=== PATIENT | male | born 1935 | race Caucasian/White ===

== ENCOUNTER 2016-12-12 11:14 | Inpatient (IN) | payer MEDICARE, OTHER ==
[~2016-12-12] VITALS: Ht 198.1 cm; Wt 149.6 kg
[~2016-12-12 11:14] MED LIST: GLUCOTROL XL5 MG PO; LOVASTATIN40 MG PO; LUTEIN20 M1 PO; METFORMIN500 MG PO; ST. JOSEPH81 M2 PO
[2016-12-13] MEDS ORDERED: SERTRALINE HYD100 MG PO (13:22)
[2016-12-13] MEDS ORDERED: LOZOL 2.5M2.5 MG/TAB PO (13:22)
[2016-12-13] MEDS ORDERED: LISINOPRIL20 MG PO (13:22)
[2016-12-13] MEDS ORDERED: GLUCOTROL10 M2 PO (13:23)
[2016-12-13] MEDS ORDERED: ARICEPT10 M1 PO (13:24)
[2016-12-13] MEDS ORDERED: LASIX20 M1 PO (13:24)
[2016-12-13] MEDS ORDERED: CARBIDOPA AND L1 OD1 PO (13:24)
[2016-12-13] MEDS ORDERED: LEADER MELATONIN5 MG PO (13:25)
[2016-12-13] MEDS ORDERED: MIRAPEX 1MG PO (13:26)
[2016-12-13] MEDS ORDERED: WELLBUTRIN 75MG75 MG PO (13:27)
[2016-12-13] MEDS ORDERED: DESYREL 50MG50 MG PO (13:28)
[2016-12-13] MEDS ORDERED: REQUIP2 M1 PO (13:28)
[2016-12-13 15:07] VITALS: BP 128/78
[2016-12-13 18:43] VITALS: BP 138/73
[2016-12-14 06:47] VITALS: BP 132/92
[2016-12-14 18:24] VITALS: BP 127/66
[2016-12-15 06:13] VITALS: BP 138/79
[2016-12-15 18:23] VITALS: BP 143/73
[2016-12-16 06:24] VITALS: BP 163/85
[2016-12-16] MEDS ORDERED: CARBIDOPA/LEVODOPA PO (14:01)
[2016-12-16 18:34] VITALS: BP 140/73
[2016-12-17 06:34] VITALS: BP 137/59
[2016-12-17 18:16] VITALS: BP 91/50
[2016-12-18 06:24] VITALS: BP 137/67
[2016-12-18 18:15] VITALS: BP 98/48
[2016-12-19 06:21] VITALS: BP 114/70
[2016-12-19 18:06] VITALS: BP 114/60
[2016-12-20 06:27] VITALS: BP 123/70
[2016-12-20 18:16] VITALS: BP 115/64
[2016-12-21 06:23] VITALS: BP 105/51
[2016-12-21 18:19] VITALS: BP 121/54
[2016-12-22 06:23] VITALS: BP 129/66
[2016-12-22 18:28] VITALS: BP 103/48
[2016-12-23 06:06] VITALS: BP 132/70
[2016-12-23 18:14] VITALS: BP 103/54
[2016-12-24 06:27] VITALS: BP 124/58
[2016-12-24] MEDS ORDERED: GLUCOPHAGE PO (14:51)
[2016-12-24 18:01] VITALS: BP 124/70
[2016-12-25 06:25] VITALS: BP 129/70
[2016-12-25 18:03] VITALS: BP 103/57
[2016-12-26 06:25] VITALS: BP 127/61
[2016-12-26 18:34] VITALS: BP 153/58
[2016-12-27 06:21] VITALS: BP 122/64
[2016-12-27 18:19] VITALS: BP 119/41
[2016-12-28 06:23] VITALS: BP 137/70
[2016-12-28 18:16] VITALS: BP 125/61
[2016-12-29 06:22] VITALS: BP 141/65
[2016-12-29 18:16] VITALS: BP 111/49
[2016-12-30 06:27] VITALS: BP 137/71
[2016-12-30 18:12] VITALS: BP 126/69
[2016-12-31 06:22] VITALS: BP 129/78
[2016-12-31 18:39] VITALS: BP 125/56
[2017-01-01 06:25] VITALS: BP 123/69
[2017-01-01 18:10] VITALS: BP 113/62
[2017-01-02 06:24] VITALS: BP 125/69
[2017-01-02 18:08] VITALS: BP 98/55
[2017-01-03 06:20] VITALS: BP 121/77
[2017-01-03 18:00] VITALS: BP 106/58
[2017-01-04 05:17] VITALS: BP 133/64
[2017-01-04 18:45] VITALS: BP 103/53
[2017-01-05 06:31] VITALS: BP 119/66
[2017-01-05 18:22] VITALS: BP 107/54
[2017-01-06 06:24] VITALS: BP 109/68
[2017-01-06 18:03] VITALS: BP 136/68
[2017-01-07 06:27] VITALS: BP 128/77
[2017-01-07 18:20] VITALS: BP 128/69
[2017-01-08 06:36] VITALS: BP 126/71
[2017-01-08 18:25] VITALS: BP 120/62
[2017-01-09 06:26] VITALS: BP 99/56
[2017-01-09 18:18] VITALS: BP 96/54
[2017-01-10 06:23] VITALS: BP 129/68
[2017-01-10 18:59] VITALS: BP 173/90
[2017-01-11 06:18] VITALS: BP 134/74
[2017-01-11 18:37] VITALS: BP 122/70
[2017-01-12 06:40] VITALS: BP 136/74
[2017-01-12 18:11] VITALS: BP 124/59
[2017-01-13 06:20] VITALS: BP 128/67
[2017-01-13 18:19] VITALS: BP 110/62
[2017-01-14 06:25] VITALS: BP 143/68
[2017-01-14 18:40] VITALS: BP 109/54
[2017-01-15 06:25] VITALS: BP 118/63
[2017-01-15 18:28] VITALS: BP 113/60
[2017-01-16 06:25] VITALS: BP 126/79
[2017-01-16 17:58] VITALS: BP 112/64
[2017-01-17 06:15] VITALS: BP 107/61
[2017-01-17 18:11] VITALS: BP 127/66
[2017-01-18 06:18] VITALS: BP 130/77
[2017-01-18 18:41] VITALS: BP 126/68
[2017-01-19 06:58] VITALS: BP 116/55
[2017-01-19 18:30] VITALS: BP 132/76
[2017-01-20 06:19] VITALS: BP 107/69
[2017-01-20 18:15] VITALS: BP 117/58
[2017-01-21 06:19] VITALS: BP 126/68
[2017-01-21 18:16] VITALS: BP 138/65
[2017-01-22 06:18] VITALS: BP 119/73
[2017-01-22 18:07] VITALS: BP 120/65
[2017-01-23 06:03] VITALS: BP 126/69
[2017-01-23] MEDS ORDERED: ASPIRIN 32325 MG/TAB PO (07:37)
[2017-01-23] MEDS ORDERED: LEVEMIR100 U/M1 SQ ×2 (08:03)
[2017-01-23] MEDS ORDERED: NYSTATIN60 GM TP (08:04)
[2017-01-23] MEDS ORDERED: HYDROCHLOROTH12.5 M1 PO (08:05)
== END 2017-01-23 14:04 | disposition home health service (06) | DRG 948 ==
LOC: MED/SURG 11:14
PROVIDERS: ADMIT Physician Assistant
DX: R53.81 Other malaise (principal); Z89.421 Acquired absence of other right toe(s); E11.9 Type 2 diabetes mellitus without complications; I10 Essential (primary) hypertension; G31.83 Neurocognitive disorder with Lewy bodies; F02.80 Dementia in other diseases classified elsewhere, unspecified severity, without behavioral disturbance, psychotic disturbance, mood disturbance, and anxiety; I73.9 Peripheral vascular disease, unspecified; Z88.0 Allergy status to penicillin; R26.9 Unspecified abnormalities of gait and mobility
CPT/HCPCS: A6402; A9270-GY; J1815; J3370; J7050

== ENCOUNTER 2018-11-03 12:31 | Inpatient (IN) | payer MEDICARE ==
[~2018-11-03] VITALS: Ht 198.1 cm; Wt 155.9 kg
[~2018-11-03 12:31] MED LIST changes: +ARICEPT10 M1 PO; +ASPIRIN 32325 MG/TAB PO; +CARBIDOPA AND L1 OD1 PO; +CARBIDOPA/LEVODOPA PO; +DESYREL 50MG50 MG PO; +GLUCOPHAGE PO; +GLUCOTROL10 M2 PO; +HYDROCHLOROTH12.5 M1 PO; +LASIX20 M1 PO; +LEADER MELATONIN5 MG PO; +LEVEMIR100 U/M1 SQ; +LISINOPRIL20 MG PO; +LOZOL 2.5M2.5 MG/TAB PO; +MIRAPEX 1MG PO; +NYSTATIN60 GM TP; +REQUIP2 M1 PO; +SERTRALINE HYD100 MG PO; +WELLBUTRIN 75MG75 MG PO
[2018-11-03 14:49] VITALS: BP 143/89
[2018-11-03 15:54] LABS: URINE APPEARANCE CLEAR; URINE BILIRUBIN NEGATIVE (NEGATIVE); URINE BLOOD TRACE (NEGATIVE); URINE COLOR YELLOW; URINE GLUCOSE NEGATIVE (NEGATIVE); URINE KETONE NEGATIVE (NEGATIVE); URINE LEUKOCYTE ESTERASE NEGATIVE (NEGATIVE); URINE NITRATE NEGATIVE (NEGATIVE); URINE PROTEIN(semi-quant) TRACE mg/dL (NEGATIVE); URINE UROBILINOGEN NORMAL (NORMAL)
[2018-11-03] MEDS ORDERED: IPRATROPIUM BROM3 M1 IH (16:03)
[2018-11-03] MEDS ORDERED: LOPRESSOR 225 MG/TAB PO (16:05)
[2018-11-03] MEDS ORDERED: COUMADIN 5MG5 MG/TAB PO (16:05)
[2018-11-03] MEDS ORDERED: LISINOPRIL10 MG PO (16:06)
[2018-11-03] MEDS ORDERED: ADULT LOW DOSE81 MG PO (16:07)
[2018-11-03] MEDS ORDERED: WELLBUTRIN 75MG75 MG PO (16:09)
[2018-11-03] MEDS ORDERED: TYLENOL325 M1 PO (16:09)
[2018-11-03] MEDS ORDERED: LEVEMIR FLEX100 U/ML SQ ×2 (16:22→16:24)
[2018-11-03 18:00] VITALS: BP 156/71
[2018-11-03 19:00] VITALS: BP 156/71
[2018-11-04 05:51] LABS: EOS # 0.3 (0.04-0.40); EOS % 3.5 % (0.0-4.0); HEMATOCRIT 32.9 % (42.0-52.0); HEMOGLOBIN 10.2 g/dL (13.5-18.0); LYMPH# 1.1 (1.50-4.00); MEAN CELL VOLUME 99 fl (78-100); MEAN CORPUSCULAR HEMOGLOBIN 31 pg (27-31); MEAN CORPUSCULAR HGB CONC 31 g/dL (33-37); MONO # 0.7 (0.20-0.80); NEU # 5.3 (1.40-6.50); PLATELET COUNT 247 K/mm3 (130-400); RED BLOOD COUNT 3.33 M/mm3 (4.20-5.60); RED CELL DISTRIBUTION WIDTH 13.4 % (11.5-14.5); WHITE BLOOD COUNT 7.5 K/mm3 (4.8-10.8)
[2018-11-04 06:10] LABS: ALBUMIN 3.4 g/dL (3.5-5.0); CALCIUM 8.4 mg/dL (8.4-10.2); POTASSIUM 4.2 mmol/L (3.6-5.0); TOTAL BILIRUBIN 0.3 mg/dL (0.2-1.3); TOTAL PROTEIN 6.5 g/dL (6.3-8.2)
[2018-11-04 06:21] LABS: PARTIAL THROMBOPLASTIN TIME 30.2 SECONDS (21.0-32.0); PROTHROMBIN TIME 11.1 SECONDS (9.0-12.0)
[2018-11-04 06:24] VITALS: BP 134/81
[2018-11-04 18:46] VITALS: BP 125/67
[2018-11-05 06:25] VITALS: BP 125/76
[2018-11-05 18:35] VITALS: BP 136/83
[2018-11-06 06:11] VITALS: BP 131/76
[2018-11-06 16:12] LABS: PROTHROMBIN TIME 12.9 SECONDS (9.0-12.0)
[2018-11-06 17:51] LABS: PROTHROMBIN TIME 12.5 SECONDS (9.0-12.0)
[2018-11-06 18:50] VITALS: BP 125/77
[2018-11-07 06:29] VITALS: BP 117/55
[2018-11-07 17:21] VITALS: BP 106/69
[2018-11-08 06:31] VITALS: BP 103/68
[2018-11-08 10:45] LABS: PROTHROMBIN TIME 14.9 SECONDS (9.0-12.0)
[2018-11-08 16:46] VITALS: BP 117/68
[2018-11-09 06:27] VITALS: BP 132/81
[2018-11-09 08:39] LABS: PROTHROMBIN TIME 17.2 SECONDS (9.0-12.0)
[2018-11-09 18:23] VITALS: BP 112/67
[2018-11-10 06:14] VITALS: BP 96/61
[2018-11-10 08:48] LABS: PROTHROMBIN TIME 23.7 SECONDS (9.0-12.0)
[2018-11-10 18:58] VITALS: BP 122/71
[2018-11-11 06:21] VITALS: BP 101/51
[2018-11-11 11:43] LABS: PROTHROMBIN TIME 34.5 SECONDS (9.0-12.0)
[2018-11-11 19:14] VITALS: BP 104/72
[2018-11-12 06:22] VITALS: BP 124/80
[2018-11-12 09:23] LABS: PROTHROMBIN TIME 35.5 SECONDS (9.0-12.0)
[2018-11-12 18:28] VITALS: BP 101/61
[2018-11-13 06:21] VITALS: BP 127/77
[2018-11-13 07:16] LABS: ALBUMIN 4.1 g/dL (3.5-5.0); CALCIUM 9.2 mg/dL (8.4-10.2); POTASSIUM 4.4 mmol/L (3.6-5.0); TOTAL BILIRUBIN 0.6 mg/dL (0.2-1.3); TOTAL PROTEIN 7.6 g/dL (6.3-8.2)
[2018-11-13 07:25] LABS: HEMATOCRIT 35.2 % (42.0-52.0); HEMOGLOBIN 10.5 g/dL (13.5-18.0); MEAN CELL VOLUME 99 fl (78-100); MEAN CORPUSCULAR HEMOGLOBIN 30 pg (27-31); MEAN CORPUSCULAR HGB CONC 30 g/dL (33-37); MEAN PLATELET VOLUME 9.8 fl (7.4-10.4); PLATELET COUNT 237 K/mm3 (130-400); RED BLOOD COUNT 3.56 M/mm3 (4.20-5.60); RED CELL DISTRIBUTION WIDTH 14.1 % (11.5-14.5); WHITE BLOOD COUNT 7.5 K/mm3 (4.8-10.8)
[2018-11-13 07:41] LABS: PROTHROMBIN TIME 39.4 SECONDS (9.0-12.0)
[2018-11-13 07:53] LABS: HYPOCHROMIA 1+; LYMPHOCYTE 16 % (20-51); MONOCYTE 8 % (3-10); NEUTROPHILS 70 % (42-75); POLYCHROMASIA 1+
[2018-11-13 16:54] VITALS: BP 129/81
[2018-11-14 06:10] VITALS: BP 107/67
[2018-11-14 19:22] VITALS: BP 130/77
[2018-11-14 22:36] LABS: PROTHROMBIN TIME 30.2 SECONDS (9.0-12.0)
[2018-11-15 06:35] VITALS: BP 134/87
[2018-11-15 09:26] LABS: PROTHROMBIN TIME 26.3 SECONDS (9.0-12.0)
[2018-11-15 18:19] VITALS: BP 123/70
[2018-11-16 06:03] VITALS: BP 125/76
[2018-11-16 07:57] LABS: PROTHROMBIN TIME 24.2 SECONDS (9.0-12.0)
[2018-11-16 12:09] LABS: HEMATOCRIT 32.1 % (42.0-52.0); HEMOGLOBIN 9.6 g/dL (13.5-18.0); MEAN CELL VOLUME 100 fl (78-100); MEAN CORPUSCULAR HEMOGLOBIN 30 pg (27-31); MEAN CORPUSCULAR HGB CONC 30 g/dL (33-37); MEAN PLATELET VOLUME 9.6 fl (7.4-10.4); PLATELET COUNT 233 K/mm3 (130-400); RED CELL DISTRIBUTION WIDTH 14.7 % (11.5-14.5); WHITE BLOOD COUNT 13.7 K/mm3 (4.8-10.8)
[2018-11-16 12:26] LABS: TROPONIN-I < 0.03 ng/mL (0.00-0.06)
[2018-11-16 12:59] LABS: URINE APPEARANCE CLEAR; URINE BILIRUBIN NEGATIVE (NEGATIVE); URINE BLOOD TRACE (NEGATIVE); URINE COLOR YELLOW; URINE GLUCOSE NEGATIVE (NEGATIVE); URINE KETONE NEGATIVE (NEGATIVE); URINE NITRATE NEGATIVE (NEGATIVE); URINE PROTEIN(semi-quant) 1+ mg/dL (NEGATIVE); URINE UROBILINOGEN NORMAL (NORMAL)
[2018-11-16 13:00] LABS: URINE LEUKOCYTE ESTERASE 2+ (NEGATIVE)
[2018-11-16 13:17] LABS: ALBUMIN 3.7 g/dL (3.5-5.0); CALCIUM 8.7 mg/dL (8.4-10.2); POTASSIUM 4.6 mmol/L (3.6-5.0); TOTAL BILIRUBIN 0.7 mg/dL (0.2-1.3); TOTAL PROTEIN 6.8 g/dL (6.3-8.2)
[2018-11-16 13:31] LABS: HYPOCHROMIA 1+; LYMPHOCYTE 4 % (20-51); MONOCYTE 6 % (3-10); NEUTROPHILS 90 % (42-75)
[2018-11-16 14:11] VITALS: BP 120/74
== END 2018-11-16 16:36 | disposition short-term general hospital (02) | DRG 947 ==
LOC: MED/SURG 12:31
PROVIDERS: Internal Medicine; Nurse Practitioner; Physician Assistant; ADMIT Nurse Practitioner Primary Care
DX: R53.81 Other malaise (principal); J18.9 Pneumonia, unspecified organism; A41.9 Sepsis, unspecified organism; I50.33 Acute on chronic diastolic (congestive) heart failure; Z66 Do not resuscitate; I48.91 Unspecified atrial fibrillation; E11.9 Type 2 diabetes mellitus without complications; I11.0 Hypertensive heart disease with heart failure; E11.621 Type 2 diabetes mellitus with foot ulcer; L97.521 Non-pressure chronic ulcer of other part of left foot limited to breakdown of skin; L97.511 Non-pressure chronic ulcer of other part of right foot limited to breakdown of skin; L89.629 Pressure ulcer of left heel, unspecified stage; L89.619 Pressure ulcer of right heel, unspecified stage; Z79.01 Long term (current) use of anticoagulants
CPT/HCPCS: J1650; J1815; J1956; J7030

== ENCOUNTER 2018-11-20 13:58 | Inpatient (IN) | payer MEDICARE ==
[~2018-11-20] VITALS: Ht 198.1 cm; Wt 145.5 kg
[~2018-11-20 13:58] MED LIST changes: +ADULT LOW DOSE81 MG PO; +COUMADIN 5MG5 MG/TAB PO; +IPRATROPIUM BROM3 M1 IH; +LEVEMIR FLEX100 U/ML SQ; +LISINOPRIL10 MG PO; +LOPRESSOR 225 MG/TAB PO; +TYLENOL325 M1 PO
[2018-11-20] MEDS ORDERED: TYLENOL325 M1 PO (15:52)
[2018-11-20] MEDS ORDERED: PROVENTIL0.09 MG/A1 IH (15:54)
[2018-11-20] MEDS ORDERED: ALBUTEROL2.5 MG/3 M IH ×2 (15:56→15:57)
[2018-11-20] MEDS ORDERED: VENELEX OINTMEN60 GM TP (15:57)
[2018-11-20] MEDS ORDERED: LEVAQUIN 750MG750 M1 PO (15:58)
[2018-11-20] MEDS ORDERED: TOPROL XL 25MG25 MG PO (15:59)
[2018-11-20] MEDS ORDERED: LASIX20 M1 PO (16:01)
[2018-11-20] MEDS ORDERED: MULTIVITAMIN1 SGL PO (16:02)
[2018-11-20] MEDS ORDERED: PROTONIX TR40 M1 PO (16:03)
[2018-11-20] MEDS ORDERED: DEEP SEA 45 ML45 ML NS (16:04)
[2018-11-20] MEDS ORDERED: GLUCOTROL5 M2 PO (16:06)
[2018-11-20] MEDS ORDERED: LOZOL 2.5M2.5 MG/TAB PO (16:06)
[2018-11-20] MEDS ORDERED: LEVEMIR100 U/M1 SQ ×2 (16:07→16:08)
[2018-11-20] MEDS ORDERED: LOVASTATIN40 M1 PO (16:09)
[2018-11-20] MEDS ORDERED: MELATIN 3 MG-11 TAB PO (16:10)
[2018-11-20] MEDS ORDERED: SERTRALINE HYD100 MG PO (16:11)
[2018-11-20 18:47] VITALS: BP 146/91
[2018-11-21 06:24] VITALS: BP 127/80
[2018-11-21 07:52] LABS: HEMATOCRIT 31.3 % (42.0-52.0); HEMOGLOBIN 9.3 g/dL (13.5-18.0); MEAN CELL VOLUME 100 fl (78-100); MEAN CORPUSCULAR HEMOGLOBIN 30 pg (27-31); MEAN CORPUSCULAR HGB CONC 30 g/dL (33-37); MEAN PLATELET VOLUME 9.5 fl (7.4-10.4); PLATELET COUNT 199 K/mm3 (130-400); RED BLOOD COUNT 3.14 M/mm3 (4.20-5.60); RED CELL DISTRIBUTION WIDTH 14.4 % (11.5-14.5); WHITE BLOOD COUNT 6.1 K/mm3 (4.8-10.8)
[2018-11-21 07:57] LABS: ALBUMIN 3.3 g/dL (3.5-5.0); POTASSIUM 4.5 mmol/L (3.6-5.0); TOTAL BILIRUBIN 0.7 mg/dL (0.2-1.3); TOTAL PROTEIN 6.5 g/dL (6.3-8.2)
[2018-11-21 08:30] LABS: LYMPHOCYTE 10 % (20-51); MONOCYTE 10 % (3-10); NEUTROPHILS 77 % (42-75)
[2018-11-21 08:32] LABS: HYPOCHROMIA 1+
[2018-11-21 08:34] LABS: CALCIUM 8.5 mg/dL (8.4-10.2)
[2018-11-21 08:38] LABS: PROTHROMBIN TIME 12.8 SECONDS (9.0-12.0)
[2018-11-21 19:17] VITALS: BP 135/74
[2018-11-22 06:25] VITALS: BP 118/76
[2018-11-22 12:09] LABS: PROTHROMBIN TIME 13.7 SECONDS (9.0-12.0)
[2018-11-22 18:30] VITALS: BP 128/80
[2018-11-23 06:25] VITALS: BP 121/69
[2018-11-23 18:19] VITALS: BP 129/70
[2018-11-24 06:25] VITALS: BP 132/84
[2018-11-24 18:39] VITALS: BP 122/75
[2018-11-25 06:56] VITALS: BP 127/74
[2018-11-25 10:01] LABS: EOS # 0.1 (0.04-0.40); EOS % 1.3 % (0.0-4.0); HEMATOCRIT 39.9 % (42.0-52.0); HEMOGLOBIN 12.2 g/dL (13.5-18.0); LYMPH# 2.1 (1.50-4.00); MEAN CELL VOLUME 78 fl (78-100); MEAN CORPUSCULAR HEMOGLOBIN 24 pg (27-31); MEAN CORPUSCULAR HGB CONC 31 g/dL (33-37); MEAN PLATELET VOLUME 10.6 fl (7.4-10.4); NEU # 7.1 (1.40-6.50); RED BLOOD COUNT 5.13 M/mm3 (4.20-5.60); RED CELL DISTRIBUTION WIDTH 20.4 % (11.5-14.5); WHITE BLOOD COUNT 10.4 K/mm3 (4.8-10.8)
[2018-11-25 10:25] LABS: PROTHROMBIN TIME 16.1 SECONDS (9.0-12.0)
[2018-11-25 10:41] LABS: PLATELET COUNT 505 K/mm3 (130-400)
[2018-11-25 10:57] LABS: CALCIUM 8.8 mg/dL (8.4-10.2); POTASSIUM 4.4 mmol/L (3.6-5.0)
[2018-11-25 18:34] VITALS: BP 121/72
[2018-11-26 06:31] VITALS: BP 130/84
[2018-11-26 17:32] LABS: HEMATOCRIT 34.4 % (42.0-52.0); HEMOGLOBIN 10.5 g/dL (13.5-18.0); MEAN CELL VOLUME 97 fl (78-100); MEAN CORPUSCULAR HEMOGLOBIN 30 pg (27-31); MEAN CORPUSCULAR HGB CONC 31 g/dL (33-37); MEAN PLATELET VOLUME 9.3 fl (7.4-10.4); PLATELET COUNT 165 K/mm3 (130-400); RED BLOOD COUNT 3.56 M/mm3 (4.20-5.60); RED CELL DISTRIBUTION WIDTH 14.4 % (11.5-14.5)
[2018-11-26 17:48] LABS: CALCIUM 8.8 mg/dL (8.4-10.2); POTASSIUM 4.4 mmol/L (3.6-5.0)
[2018-11-26 18:08] LABS: LYMPHOCYTE 10 % (20-51); MONOCYTE 6 % (3-10); NEUTROPHILS 80 % (42-75)
[2018-11-26 18:09] LABS: NUCLEATED RED BLOOD CELL 1 (0-6); POLYCHROMASIA 1+
[2018-11-26 18:36] VITALS: BP 132/76
[2018-11-27 06:34] VITALS: BP 116/73
[2018-11-27 07:34] LABS: PROTHROMBIN TIME 18.4 SECONDS (9.0-12.0)
[2018-11-27 18:20] VITALS: BP 136/72
[2018-11-28 06:13] VITALS: BP 123/75
[2018-11-28 08:32] LABS: PROTHROMBIN TIME 22.1 SECONDS (9.0-12.0)
[2018-11-28 18:21] VITALS: BP 131/75
[2018-11-29 06:15] VITALS: BP 117/64
[2018-11-29 17:18] VITALS: BP 116/72
[2018-11-30 06:24] VITALS: BP 115/75
[2018-11-30 07:57] LABS: PROTHROMBIN TIME 36.4 SECONDS (9.0-12.0)
[2018-11-30 18:34] VITALS: BP 137/85
[2018-12-01 06:05] VITALS: BP 122/73
[2018-12-01 13:43] LABS: PROTHROMBIN TIME 46.6 SECONDS (9.0-12.0)
[2018-12-01 18:00] VITALS: BP 109/69
[2018-12-02 06:08] LABS: PROTHROMBIN TIME 34.2 SECONDS (9.0-12.0)
[2018-12-02 06:15] VITALS: BP 125/79
[2018-12-02 17:58] VITALS: BP 134/77
[2018-12-03 06:19] VITALS: BP 123/86
[2018-12-03 18:20] VITALS: BP 103/64
[2018-12-04 06:12] VITALS: BP 131/86
[2018-12-04 07:11] LABS: PROTHROMBIN TIME 25.5 SECONDS (9.0-12.0)
[2018-12-04 18:00] VITALS: BP 117/73
[2018-12-05 06:14] VITALS: BP 120/78
[2018-12-05 18:21] VITALS: BP 105/59
[2018-12-06 06:17] VITALS: BP 122/79
[2018-12-06 18:00] VITALS: BP 121/83
[2018-12-07 06:16] VITALS: BP 128/81
[2018-12-07 18:26] VITALS: BP 127/85
[2018-12-08 06:15] VITALS: BP 115/75
[2018-12-08 08:43] LABS: HEMOGLOBIN 9.7 g/dL (13.5-18.0); MEAN CELL VOLUME 96 fl (78-100); MEAN CORPUSCULAR HEMOGLOBIN 29 pg (27-31); MEAN CORPUSCULAR HGB CONC 30 g/dL (33-37); MEAN PLATELET VOLUME 9.8 fl (7.4-10.4); PLATELET COUNT 196 K/mm3 (130-400); RED BLOOD COUNT 3.33 M/mm3 (4.20-5.60); RED CELL DISTRIBUTION WIDTH 14.5 % (11.5-14.5); WHITE BLOOD COUNT 5.4 K/mm3 (4.8-10.8)
[2018-12-08 08:49] LABS: POTASSIUM 3.7 mmol/L (3.6-5.0)
[2018-12-08 09:37] LABS: BAND 1 % (0-10); LYMPHOCYTE 21 % (20-51); MONOCYTE 3 % (3-10); NEUTROPHILS 66 % (42-75)
[2018-12-08 18:00] VITALS: BP 111/69
[2018-12-09 06:19] VITALS: BP 128/67
[2018-12-09 18:00] VITALS: BP 111/62
[2018-12-10 06:18] VITALS: BP 119/71
[2018-12-10 12:22] LABS: CALCIUM 8.9 mg/dL (8.4-10.2); POTASSIUM 3.8 mmol/L (3.6-5.0)
[2018-12-10 12:23] LABS: EOS # 0.4 (0.04-0.40); EOS % 7.6 % (0.0-4.0); HEMATOCRIT 33.6 % (42.0-52.0); HEMOGLOBIN 10.1 g/dL (13.5-18.0); LYMPH# 0.9 (1.50-4.00); MEAN CELL VOLUME 96 fl (78-100); MEAN CORPUSCULAR HEMOGLOBIN 29 pg (27-31); MEAN CORPUSCULAR HGB CONC 30 g/dL (33-37); MEAN PLATELET VOLUME 9.4 fl (7.4-10.4); MONO # 0.7 (0.20-0.80); NEU # 3.7 (1.40-6.50); PLATELET COUNT 177 K/mm3 (130-400); RED BLOOD COUNT 3.52 M/mm3 (4.20-5.60); RED CELL DISTRIBUTION WIDTH 14.8 % (11.5-14.5); WHITE BLOOD COUNT 5.8 K/mm3 (4.8-10.8)
[2018-12-10 18:00] VITALS: BP 110/74
[2018-12-11 05:34] VITALS: BP 113/70
[2018-12-11 07:41] LABS: URINE APPEARANCE CLOUDY; URINE BILIRUBIN NEGATIVE (NEGATIVE); URINE BLOOD 250 ery/uL (NEGATIVE); URINE COLOR DARK YELLOW; URINE GLUCOSE NEGATIVE (NEGATIVE); URINE KETONE NEGATIVE (NEGATIVE); URINE LEUKOCYTE ESTERASE 2+ (NEGATIVE); URINE NITRATE NEGATIVE (NEGATIVE); URINE PROTEIN(semi-quant) 1+ mg/dL (NEGATIVE); URINE UROBILINOGEN NORMAL (NORMAL)
[2018-12-11 18:04] VITALS: BP 126/78
[2018-12-12 06:19] VITALS: BP 131/85
[2018-12-12 18:30] VITALS: BP 116/70
[2018-12-13 06:13] VITALS: BP 145/89
[2018-12-13 18:00] VITALS: BP 143/83
[2018-12-14 06:27] VITALS: BP 114/72
[2018-12-14 18:59] VITALS: BP 118/70
[2018-12-15 06:24] VITALS: BP 114/64
[2018-12-15 18:26] VITALS: BP 145/72
[2018-12-16 05:43] VITALS: BP 128/82
[2018-12-16 17:35] VITALS: BP 128/79
[2018-12-17 06:07] VITALS: BP 111/74
[2018-12-17] MEDS ORDERED: XARELTO20 MG PO (10:32)
[2018-12-17] MEDS ORDERED: TOPROL XL 25MG25 MG PO (10:33)
[2018-12-17] MEDS ORDERED: FUROSEMIDE40 MG PO (10:33)
[2018-12-17] MEDS ORDERED: LEVEMIR100 U/M1 SQ (10:34)
[2018-12-17] MEDS ORDERED: VITAMIN C500 MG PO (10:35)
== END 2018-12-17 11:35 | disposition home health service (06) | DRG 947 ==
LOC: MED/SURG 13:58
PROVIDERS: Family Medicine; Nurse Practitioner Family; Physician Assistant; ADMIT Nurse Practitioner Primary Care
DX: R53.81 Other malaise (principal); J18.9 Pneumonia, unspecified organism; I50.33 Acute on chronic diastolic (congestive) heart failure; J90 Pleural effusion, not elsewhere classified; F33.9 Major depressive disorder, recurrent, unspecified; N39.0 Urinary tract infection, site not specified; I11.0 Hypertensive heart disease with heart failure; E11.9 Type 2 diabetes mellitus without complications; G20 Parkinson's disease; I48.2 Chronic atrial fibrillation; Z79.01 Long term (current) use of anticoagulants
CPT/HCPCS: J1815

== ENCOUNTER 2019-02-05 15:12 | Inpatient (IN) | payer MEDICARE ==
[~2019-02-05] VITALS: Ht 195.6 cm; Wt 136.4 kg
[~2019-02-05 15:12] MED LIST changes: +ALBUTEROL2.5 MG/3 M IH; +DEEP SEA 45 ML45 ML NS; +FEOSOL325 MG PO; +FUROSEMIDE40 MG PO; +GAS RELIEF125 MG PO; +GLUCOTROL5 M2 PO; +LEVAQUIN 750MG750 M1 PO; +LOVASTATIN40 M1 PO; +MELATIN 3 MG-11 TAB PO; +MULTIVITAMIN1 SGL PO; +PRESERVISION A1 EACH PO; +PROTONIX TR40 M1 PO; +PROVENTIL0.09 MG/A1 IH; +TOPROL XL 25MG25 MG PO; +VENELEX OINTMEN60 GM TP; +VITAMIN C500 MG PO; +XARELTO20 MG PO
[2019-02-05 17:06] VITALS: BP 136/79
[2019-02-05 18:49] VITALS: BP 179/107
[2019-02-05 19:48] LABS: EOS # 0.4 (0.04-0.40); EOS % 4.1 % (0.0-4.0); HEMATOCRIT 33.4 % (42.0-52.0); LYMPH# 1.4 (1.50-4.00); MEAN CELL VOLUME 94 fl (78-100); MEAN CORPUSCULAR HEMOGLOBIN 28 pg (27-31); MEAN CORPUSCULAR HGB CONC 30 g/dL (33-37); MEAN PLATELET VOLUME 9.2 fl (7.4-10.4); MONO # 0.8 (0.20-0.80); NEU # 6.2 (1.40-6.50); PLATELET COUNT 221 K/mm3 (130-400); RED BLOOD COUNT 3.54 M/mm3 (4.20-5.60); WHITE BLOOD COUNT 8.9 K/mm3 (4.8-10.8)
[2019-02-05 20:01] LABS: ALBUMIN 3.3 g/dL (3.4-4.8); POTASSIUM 4.1 mmol/L (3.5-5.1); TOTAL BILIRUBIN 0.6 mg/dL (0.2-1.2); TOTAL PROTEIN 7.1 g/dL (6.2-8.1)
[2019-02-05 20:10] LABS: URINE APPEARANCE CLEAR; URINE BILIRUBIN NEGATIVE (NEGATIVE); URINE BLOOD NEGATIVE (NEGATIVE); URINE COLOR YELLOW; URINE GLUCOSE NEGATIVE (NEGATIVE); URINE KETONE NEGATIVE (NEGATIVE); URINE LEUKOCYTE ESTERASE NEGATIVE (NEGATIVE); URINE NITRATE NEGATIVE (NEGATIVE); URINE PROTEIN(semi-quant) TRACE mg/dL (NEGATIVE); URINE UROBILINOGEN NORMAL (NORMAL); URINE WBC 0-1 /hpf (0-3)
[2019-02-06 06:08] VITALS: BP 119/77
[2019-02-06 18:41] VITALS: BP 107/71
[2019-02-07 06:27] VITALS: BP 117/73
[2019-02-07 18:19] VITALS: BP 107/70
[2019-02-08 06:32] VITALS: BP 127/73
[2019-02-08 09:25] LABS: EOS # 0.5 (0.04-0.40); HEMATOCRIT 33.7 % (42.0-52.0); MEAN CELL VOLUME 94 fl (78-100); MEAN CORPUSCULAR HEMOGLOBIN 28 pg (27-31); MEAN CORPUSCULAR HGB CONC 30 g/dL (33-37); MEAN PLATELET VOLUME 9.3 fl (7.4-10.4); MONO # 0.7 (0.20-0.80); PLATELET COUNT 250 K/mm3 (130-400); RED BLOOD COUNT 3.59 M/mm3 (4.20-5.60); RED CELL DISTRIBUTION WIDTH 16.6 % (11.5-14.5); WHITE BLOOD COUNT 8.3 K/mm3 (4.8-10.8)
[2019-02-08 09:27] LABS: ALBUMIN 3.3 g/dL (3.4-4.8); CALCIUM 9.2 mg/dL (8.3-10.5); POTASSIUM 4.2 mmol/L (3.5-5.1); TOTAL BILIRUBIN 0.6 mg/dL (0.2-1.2); TOTAL PROTEIN 7.2 g/dL (6.2-8.1)
[2019-02-08 09:31] LABS: EOS % 5.7 % (0.0-4.0)
[2019-02-08 18:53] VITALS: BP 136/85
[2019-02-09 06:15] VITALS: BP 126/82
[2019-02-09 17:51] VITALS: BP 121/71
[2019-02-10 06:25] VITALS: BP 125/82
[2019-02-10 18:43] VITALS: BP 109/69
[2019-02-11 06:25] VITALS: BP 133/82
[2019-02-11 19:05] VITALS: BP 137/83
[2019-02-12 06:06] VITALS: BP 109/69
[2019-02-12 18:48] VITALS: BP 105/63
[2019-02-13 06:16] VITALS: BP 118/78
[2019-02-13 18:30] VITALS: BP 104/67
[2019-02-14 06:03] VITALS: BP 114/72
[2019-02-14 18:00] VITALS: BP 86/54
[2019-02-14 19:13] VITALS: BP 115/62
[2019-02-15 06:25] VITALS: BP 129/83
[2019-02-15 06:53] LABS: EOS # 0.4 (0.04-0.40); HEMATOCRIT 32.9 % (42.0-52.0); HEMOGLOBIN 9.9 g/dL (13.5-18.0); LYMPH# 1.2 (1.50-4.00); MEAN CELL VOLUME 92 fl (78-100); MEAN CORPUSCULAR HEMOGLOBIN 28 pg (27-31); MEAN CORPUSCULAR HGB CONC 30 g/dL (33-37); MEAN PLATELET VOLUME 9.1 fl (7.4-10.4); MONO # 0.8 (0.20-0.80); NEU # 4.3 (1.40-6.50); PLATELET COUNT 249 K/mm3 (130-400); RED BLOOD COUNT 3.57 M/mm3 (4.20-5.60); WHITE BLOOD COUNT 6.7 K/mm3 (4.8-10.8)
[2019-02-15 07:05] LABS: EOS % 5.2 % (0.0-4.0)
[2019-02-15 07:59] LABS: ALBUMIN 3.3 g/dL (3.4-4.8); CALCIUM 9.1 mg/dL (8.3-10.5); POTASSIUM 4.2 mmol/L (3.5-5.1); TOTAL BILIRUBIN 0.4 mg/dL (0.2-1.2); TOTAL PROTEIN 7.2 g/dL (6.2-8.1)
[2019-02-15] MEDS ORDERED: FUROSEMIDE40 MG PO (12:07)
[2019-02-15] MEDS ORDERED: GAS RELIEF125 MG PO (12:09)
[2019-02-15] MEDS ORDERED: LEVEMIR100 U/M1 SQ (12:14)
[2019-02-15] MEDS ORDERED: NYSTATIN15 G1 TP (12:15)
[2019-02-15] MEDS ORDERED: ANUSOL HC CREAM30 GM TOP (12:15)
[2019-02-15] MEDS ORDERED: ZINC OXIDE30 GM TOP (12:16)
[2019-02-15 12:57] VITALS: BP 129/83
[2019-02-15 13:21] VITALS: BP 110/70
== END 2019-02-15 14:55 | DRG 947 ==
LOC: MED/SURG 15:12
PROVIDERS: ADMIT Nurse Practitioner Primary Care
DX: R53.81 Other malaise (principal); A40.9 Streptococcal sepsis, unspecified; L03.116 Cellulitis of left lower limb; L03.115 Cellulitis of right lower limb; L97.829 Non-pressure chronic ulcer of other part of left lower leg with unspecified severity; R53.83 Other fatigue; R53.1 Weakness; E11.622 Type 2 diabetes mellitus with other skin ulcer; G20 Parkinson's disease; I50.9 Heart failure, unspecified; I35.0 Nonrheumatic aortic (valve) stenosis; F02.80 Dementia in other diseases classified elsewhere, unspecified severity, without behavioral disturbance, psychotic disturbance, mood disturbance, and anxiety; I48.0 Paroxysmal atrial fibrillation; Z89.421 Acquired absence of other right toe(s); E11.51 Type 2 diabetes mellitus with diabetic peripheral angiopathy without gangrene
CPT/HCPCS: J0696; J1815